=== PATIENT | female | born 1980 | race African-American/Black ===

== ENCOUNTER 2019-12-02 18:57 | Inpatient (IN) | payer MEDICAID, OTHER ==
[~2019-12-02] VITALS: Ht 170.2 cm; Wt 101.6 kg
[2019-12-02] MEDS ORDERED: SODIUM CHLORIDE 0.9% 1,000 ML IV ONE ×2 (19:09→19:33)
[2019-12-02 19:52] LABS: BASOPHILS % 0.5 % (0.0-2.0); EOSINOPHILS % 0.1 % (0.0-5.0); HEMATOCRIT. 31.1 % (36.0-48.0); HEMOGLOBIN. 10.4 g/dL (12.0-16.0); LYMPHOCYTES % 15.9 % (20.0-50.0); MEAN CORPUSCULAR HEMOGLOBIN 22.4 pg (28.0-32.0); MEAN CORPUSCULAR VOLUME 67.3 fL (81.0-99.0); MEAN PLATELET VOLUME 8.1 fl (7.4-10.4); MONOCYTES % 5.8 % (2.0-8.0); NEUTROPHILS % 77.7 % (40.0-76.0); PLATELET 444 x1000/uL (130-400); RED BLOOD CELL COUNT 4.62 mill/uL (4.2-5.4); RED CELL DISTRIBUTION WIDTH 19.4 % (11.6-14.6)
[2019-12-02 19:58] LABS: CHLORIDE 111 mEq/L (98-107)
[2019-12-02 20:02] LABS: ETHANOL BLOOD 22 mg/dL
[2019-12-02 20:30] LABS: PLATELET ESTIMATE INCREASED
[2019-12-02] MEDS ORDERED: MORPHINE SULFATE 4 MG/ML CPJ (NOT FOR IM USE) IV ONE (21:00)
[2019-12-02 21:03] LABS: CLARITY URINE CLEAR (CLEAR); COLOR URINE YELLOW (YELLOW); KETONES URINE TRACE (NEGATIVE); LEUKOCYTE ESTERASE URINE TRACE (NEGATIVE); NITRITE URINE NEGATIVE (NEGATIVE); OCCULT BLOOD URINE NEGATIVE (NEGATIVE); PH URINE 6.5 (4.5-8.0); PROTEIN URINE TRACE (NEGATIVE); SPECIFIC GRAVITY URINE 1.048 (1.005-1.030)
[2019-12-02 21:20] LABS: *AMPHETAMINES SCREEN URINE NEGATIVE (NEGATIVE); *BARBITURATES SCREEN URINE NEGATIVE (NEGATIVE); *BENZODIAZEPINES SCREEN URINE NEGATIVE (NEGATIVE); *COCAINE SCREEN URINE NEGATIVE (NEGATIVE)
[2019-12-02 21:21] LABS: OPIATES URINE SCREEN NEGATIVE (NEGATIVE); PHENCYCLIDINE URINE SCREEN NEGATIVE (NEGATIVE)
[2019-12-02 21:22] LABS: METHADONE URINE SCREEN NEGATIVE (NEGATIVE)
[2019-12-02 21:32] LABS: CANNABINOID URINE SCREEN PRESUMTIVE POSITIVE (NEGATIVE)
[2019-12-02] MEDS ORDERED: DOCUSATE SODIUM 100MG CAPSULE PO PRN (23:15)
[2019-12-02] MEDS ORDERED: GUAIFENESIN 200MG/10ML SUGAR FREE UDC PO PRN (23:15)
[2019-12-02] MEDS ORDERED: ACETAMINOPHEN 650MG/20.3ML UDC GT PRN ×2 (23:15)
[2019-12-02] MEDS ORDERED: ACETAMINOPHEN 650MG SUPP PR PRN ×2 (23:15)
[2019-12-02] MEDS ORDERED: IOHEXOL-350 100 ML BOTTLE ONE (23:18)
[2019-12-02] MEDS ORDERED: IOHEXOL-300 100 ML BOTTLE ONE (23:25)
[2019-12-03] MEDS: DEXT 5%/0.45% NACL 1000ML 1,000 ML IV SCH ×2 (00:02→16:40)
[2019-12-03 06:06] LABS: BASOPHILS % 0.3 % (0.0-2.0); EOSINOPHILS % 0.7 % (0.0-5.0); HEMATOCRIT. 29.2 % (36.0-48.0); HEMOGLOBIN. 9.6 g/dL (12.0-16.0); MEAN CORPUSCULAR HEMOGLOBIN 22.3 pg (28.0-32.0); MEAN CORPUSCULAR VOLUME 67.9 fL (81.0-99.0); MEAN PLATELET VOLUME 8.2 fl (7.4-10.4); PLATELET 391 x1000/uL (130-400); RED CELL DISTRIBUTION WIDTH 19.7 % (11.6-14.6)
[2019-12-03 06:13] LABS: CHLORIDE 111 mEq/L (98-107)
[2019-12-03 06:20] LABS: LDL CHOLESTEROL 61 mg/dL (5-100)
[2019-12-03 06:21] LABS: HDL CHOLESTEROL 36 mg/dL (40-59)
[2019-12-03 06:22] LABS: CREATINE KINASE 148 IU/L (26-192)
[2019-12-03 06:25] LABS: CREATINE KINASE MB FRACTION 1.1 ng/mL (0.5-3.6)
[2019-12-03] MEDS ORDERED: MORPHINE SULFATE 2 MG/ML CPJ (NOT FOR IM USE) IV NR (11:07)
[2019-12-03 14:46] LABS: CREATINE KINASE 139 IU/L (26-192)
[2019-12-03 14:47] LABS: CREATINE KINASE MB FRACTION < 1.0 ng/mL (0.5-3.6)
[2019-12-03 23:47] VITALS: BP 155/98
[2019-12-04] VITALS (10 sets, daily range): BP systolic 121–169; BP diastolic 68–113
[2019-12-04] MEDS: ACETAMINOPHEN 325MG TABLET PO PRN ×2 (00:48→10:49)
[2019-12-04] MEDS ORDERED: ONDANSETRON HCL 4MG/2ML INJ IV PRN ×2 (07:45→08:00)
[2019-12-04] MEDS ORDERED: LABETALOL 5MG/ML SYR 20 MG/4 ML SYRINGE IV PRN (07:45)
[2019-12-04] MEDS ORDERED: POTASSIUM CHLORIDE 20MEQ TABLET SR PO PRN (07:45)
[2019-12-04] MEDS ORDERED: LABETALOL HCL 100MG TABLET PO PRN (08:00)
[2019-12-04] MEDS ORDERED: FAMOTIDINE 20MG/2ML VIAL IV SCH (09:00)
[2019-12-04 10:39] LABS: BASOPHILS % 0.6 % (0.0-2.0); EOSINOPHILS % 1.6 % (0.0-5.0); HEMATOCRIT. 28.2 % (36.0-48.0); HEMOGLOBIN. 9.4 g/dL (12.0-16.0); LYMPHOCYTES % 26.6 % (20.0-50.0); MEAN CORPUSCULAR HEMOGLOBIN 22.6 pg (28.0-32.0); MEAN CORPUSCULAR VOLUME 67.5 fL (81.0-99.0); MEAN PLATELET VOLUME 7.9 fl (7.4-10.4); MONOCYTES % 6.9 % (2.0-8.0); NEUTROPHILS % 64.3 % (40.0-76.0); PLATELET 363 x1000/uL (130-400); RED BLOOD CELL COUNT 4.18 mill/uL (4.2-5.4); RED CELL DISTRIBUTION WIDTH 19.3 % (11.6-14.6)
[2019-12-04 10:52] LABS: CHLORIDE 108 mEq/L (98-107)
[2019-12-04] MEDS ORDERED: AMLO5TAB4 MT (12:39)
[2019-12-04 14:24] LABS: UCG SCREEN NEGATIVE
== END 2019-12-04 17:15 | disposition home or self-care (01) | DRG 48 ==
LOC: ER 18:57 → MICUSO 23:05 → 3WST 12-03 23:17 → ENRESERV 12-03 23:21 → CANRESERV 12-03 23:21
PROVIDERS: ADMIT Family Medicine; ATTEND Family Medicine
DX: G90.8 Other disorders of autonomic nervous system (principal); E87.6 Hypokalemia; E66.9 Obesity, unspecified; E86.0 Dehydration; R07.89 Other chest pain; F12.90 Cannabis use, unspecified, uncomplicated; I10 Essential (primary) hypertension; Z68.35 Body mass index [BMI] 35.0-35.9, adult; Z72.89 Other problems related to lifestyle; K21.9 Gastro-esophageal reflux disease without esophagitis
CPT/HCPCS: 36415; 70496; 71045; 74177; 80053; 80061; 80305; 80320; 81003; 81025; 82140; 82550; 82553; 82962; 83605; 83880; 84132; 84484; 85025; 85379; 93005; 93306; 93970; 96374; 99285; J2270; J3490; J7030; Q9967; G0480

== ENCOUNTER 2023-11-08 11:44 | Inpatient (IN) | payer SELFPAY ==
[~2023-11-08] VITALS: Ht 165.1 cm; Wt 87.1 kg
[2023-11-08] MEDS: SODIUM CHLORIDE 0.9% 1,000 ML IV ONE (12:00)
[2023-11-08 12:31] LABS: BASOPHILS % 0.5 % (0.0-2.0); EOSINOPHILS % 0.2 % (0.0-5.0); HEMATOCRIT. 26.1 % (36.0-48.0); HEMOGLOBIN. 7.9 g/dL (12.0-16.0); LYMPHOCYTES % 11.6 % (20.0-50.0); MEAN CORPUSCULAR HEMOGLOBIN 17.7 pg (28.0-32.0); MEAN CORPUSCULAR HGB CONC 30.1 g/dL (31.0-37.0); MEAN CORPUSCULAR VOLUME 58.7 fL (81.0-99.0); MEAN PLATELET VOLUME 8.5 fl (7.4-10.4); NEUTROPHILS % 81.7 % (40.0-76.0); PLATELET 544 x1000/uL (130-400); RED BLOOD CELL COUNT 4.44 mill/uL (4.2-5.4); RED CELL DISTRIBUTION WIDTH 21.6 % (11.6-14.6); WHITE BLOOD COUNT 8.1 x1000/uL (4.5-11.0)
[2023-11-08 12:39] LABS: CHLORIDE 112 mEq/L (98-107); POTASSIUM 4.1 mEq/L (3.5-5.1); SODIUM 143 mEq/L (136-145)
[2023-11-08 12:40] LABS: CARBON DIOXIDE 23 mEq/L (21-32)
[2023-11-08 12:41] LABS: CALCIUM 9.4 mg/dL (8.7-10.4)
[2023-11-08 12:45] LABS: CREATININE 0.6 mg/dL (0.6-1.0); GLUCOSE 76 mg/dL (70-105)
[2023-11-08 12:46] LABS: UREA NITROGEN BLOOD 10 mg/dL (9-23)
[2023-11-08 12:54] LABS: ADD RBC MORPHOLOGY YES; DIFFERENTIAL COMMENT 1
[2023-11-08] MEDS: ONDANSETRON HCL 4MG/2ML INJ IV STA (13:09)
[2023-11-08] MEDS: MORPHINE SULFATE 4 MG/ML INJ (FOR IV/IM USE) IV STA (13:10)
[2023-11-08 13:19] LABS: INR 1.1; PROTHROMBIN TIME 12.4 sec (9.6-11.0)
[2023-11-08 13:29] LABS: CLARITY URINE CLEAR (CLEAR); COLOR URINE YELLOW (YELLOW); GLUCOSE URINE NEGATIVE (NEGATIVE); KETONES URINE NEGATIVE (NEGATIVE); LEUKOCYTE ESTERASE URINE TRACE (NEGATIVE); NITRITE URINE NEGATIVE (NEGATIVE); OCCULT BLOOD URINE 3+ (NEGATIVE); PROTEIN URINE TRACE (NEGATIVE); SPECIFIC GRAVITY URINE 1.027 (1.005-1.030)
[2023-11-08 13:36] LABS: ANISOCYTOSIS 3+; MICROCYTOSIS 3+; PLATELET ESTIMATE INCREASED; TARGET CELLS 1+
[2023-11-08 13:37] LABS: HYPOCHROMASIA 1+
[2023-11-08 13:43] LABS: RBC URINE TNTC /hpf (0-2); SQUAMOUS EPITHELIAL CELL URINE 2+ /lpf (RARE/1+)
[2023-11-08 13:44] LABS: BACTERIA URINE NONE SEEN; YEAST URINE NONE SEEN
[2023-11-08 13:44] LABS: HCG SCREEN NEGATIVE
[2023-11-08] MEDS: DIATR MEGLU/DIATRIZOATE SOLN 30ML PO NR (15:20)
[2023-11-08] MEDS ORDERED: IPRATROPIUM/ALBUTEROL 0.5-3(2.5)MG/3ML NEB HHN PRN (17:45)
[2023-11-08] MEDS ORDERED: ACETAMINOPHEN 325MG TABLET PO PRN (17:45)
[2023-11-08] MEDS ORDERED: ONDANSETRON HCL 4MG/2ML INJ IV PRN (17:45)
[2023-11-08] MEDS: PANTOPRAZOLE SODIUM 40 MG/VIAL IV SCH (21:23)
[2023-11-08] MEDS ORDERED: IOHEXOL-300 100 ML BOTTLE ONE (23:25)
[2023-11-09] VITALS (8 sets, daily range): BP systolic 132–189; BP diastolic 75–123; PULSE 49–81; RESP 10–19; TEMP 98–98.3
[2023-11-09] MEDS: ACETAMINOPHEN 325MG TABLET PO PRN (03:04)
[2023-11-09] MEDS: CLONIDINE 0.1MG TABLET PO PRN (03:05)
[2023-11-09 05:42] LABS: *AMPHETAMINES SCREEN URINE NEGATIVE (NEGATIVE); *BARBITURATES SCREEN URINE NEGATIVE (NEGATIVE); *BENZODIAZEPINES SCREEN URINE NEGATIVE (NEGATIVE); *COCAINE SCREEN URINE NEGATIVE (NEGATIVE); METHADONE URINE SCREEN NEGATIVE (NEGATIVE); OPIATES URINE SCREEN PRESUMPTIVE POSITIVE (NEGATIVE)
[2023-11-09 05:43] LABS: CANNABINOID URINE SCREEN PRESUMPTIVE POSITIVE (NEGATIVE); ECSTASY MDMA SCREEN URINE NEGATIVE (NEGATIVE); PHENCYCLIDINE URINE SCREEN NEGATIVE (NEGATIVE)
[2023-11-09 06:50] LABS: FERRITIN 5 ng/mL (10-291); FOLIC ACID (FOLATE) SERUM 16.41 ng/mL (>5.38)
[2023-11-09 06:51] LABS: VITAMIN B12 SERUM 605 pg/mL (211-911)
[2023-11-09 06:55] LABS: CALCIUM 8.3 mg/dL (8.7-10.4); CARBON DIOXIDE 23 mEq/L (21-32); CHLORIDE 110 mEq/L (98-107); POTASSIUM 3.4 mEq/L (3.5-5.1); SODIUM 139 mEq/L (136-145)
[2023-11-09 06:57] LABS: CREATININE 0.5 mg/dL (0.6-1.0)
[2023-11-09 06:58] LABS: ALANINE AMINOTRANSFERASE 15 IU/L (10-49); ASPARTATE AMINOTRANSFERASE 17 IU/L (<34)
[2023-11-09 06:59] LABS: ALBUMIN 4.2 g/dL (3.2-4.8); GLUCOSE 73 mg/dL (70-105); IRON 78 ug/dL (50-170)
[2023-11-09 07:00] LABS: TOTAL IRON BINDING CAPACITY 403 ug/dl (250-425)
[2023-11-09 07:01] LABS: BILIRUBIN DIRECT 0.6 mg/dL (<=3.0); UREA NITROGEN BLOOD 6 mg/dL (9-23)
[2023-11-09 07:02] LABS: BILIRUBIN TOTAL 1.8 mg/dL (0.1-1.0); PROTEIN TOTAL 6.9 g/dL (6.0-8.3)
[2023-11-09 07:10] LABS: BASOPHILS % 0.5 % (0.0-2.0); HEMATOCRIT. 24.1 % (36.0-48.0); HEMOGLOBIN. 7.2 g/dL (12.0-16.0); LYMPHOCYTES % 19.4 % (20.0-50.0); MEAN CORPUSCULAR HEMOGLOBIN 17.8 pg (28.0-32.0); MEAN CORPUSCULAR VOLUME 59.2 fL (81.0-99.0); MEAN PLATELET VOLUME 8.5 fl (7.4-10.4); MONOCYTES % 8.5 % (2.0-8.0); NEUTROPHILS % 70.6 % (40.0-76.0); PLATELET 470 x1000/uL (130-400); RED BLOOD CELL COUNT 4.08 mill/uL (4.2-5.4); WHITE BLOOD COUNT 6.3 x1000/uL (4.5-11.0)
[2023-11-09 07:40] LABS: DIFFERENTIAL COMMENT 1
[2023-11-09] MEDS ORDERED: NALOXONE HCL 0.4MG/ML VIAL IV PRN (13:00)
[2023-11-09] MEDS: AMLODIPINE 5MG TABLET PO SCH (14:15)
[2023-11-09] MEDS: MORPHINE SULFATE 2 MG/ML CPJ (NOT FOR IM USE) IV PRN (14:24)
[2023-11-09] MEDS: POTASSIUM CHLORIDE 20MEQ TABLET SR PO SCH (17:03)
[2023-11-09] MEDS: DEXT 5%/0.9% NACL 1,000 ML IV SCH (22:05)
[2023-11-10] VITALS (19 sets, daily range): BP systolic 129–157; BP diastolic 71–102; PULSE 53–88; RESP 12–33; TEMP 97.7–98.6; O2SAT 100
[2023-11-10 02:26] LABS: BASOPHILS % 0.6 % (0.0-2.0); EOSINOPHILS % 1.4 % (0.0-5.0); HEMATOCRIT. 23.9 % (36.0-48.0); LYMPHOCYTES % 21.7 % (20.0-50.0); MEAN CORPUSCULAR HEMOGLOBIN 18.2 pg (28.0-32.0); MEAN CORPUSCULAR HGB CONC 29.3 g/dL (31.0-37.0); MEAN CORPUSCULAR VOLUME 62.1 fL (81.0-99.0); MEAN PLATELET VOLUME 7.4 fl (7.4-10.4); MONOCYTES % 7.9 % (2.0-8.0); NEUTROPHILS % 68.4 % (40.0-76.0); PLATELET 461 x1000/uL (130-400); RED BLOOD CELL COUNT 3.85 mill/uL (4.2-5.4); RED CELL DISTRIBUTION WIDTH 20.6 % (11.6-14.6); WHITE BLOOD COUNT 6.9 x1000/uL (4.5-11.0)
[2023-11-10 02:29] LABS: DIFFERENTIAL COMMENT 1
[2023-11-10 02:36] LABS: CHLORIDE 109 mEq/L (98-107); POTASSIUM 3.8 mEq/L (3.5-5.1); SODIUM 137 mEq/L (136-145)
[2023-11-10 02:37] LABS: CALCIUM 8.6 mg/dL (8.7-10.4); CARBON DIOXIDE 21 mEq/L (21-32)
[2023-11-10 02:38] LABS: PROTHROMBIN TIME 11.2 sec (9.6-11.0)
[2023-11-10 02:42] LABS: CREATININE 0.6 mg/dL (0.6-1.0); GLUCOSE 122 mg/dL (70-105)
[2023-11-10 03:05] LABS: UREA NITROGEN BLOOD < 5 mg/dL (9-23)
[2023-11-10] MEDS: MORPHINE SULFATE 2 MG/ML CPJ (NOT FOR IM USE) IV NR (07:28)
[2023-11-10 10:35] LABS: TROPONIN I HIGH SENSITIVITY < 4 ng/L (3.0-34)
[2023-11-10] MEDS ORDERED: PROPOFOL 200MG/20ML VIAL IV ONE ×2 (11:57→12:22)
[2023-11-10] MEDS ORDERED: ONDANSETRON HCL 4MG/2ML INJ ONE (11:57)
[2023-11-10] MEDS ORDERED: DEXAMETHASONE 4MG/ML 1ML VIAL ONE (11:57)
[2023-11-10] MEDS ORDERED: MIDAZOLAM HCL 2 MG/2 ML VIAL ONE (12:10)
[2023-11-10] MEDS ORDERED: LIDOCAINE HCL 1% 10 MG/ML 10ML VIAL ONE (12:22)
[2023-11-10 16:22] LABS: HEMATOCRIT 32.3 % (36.0-48.0)
[2023-11-10] MEDS ORDERED: AMLO5TAB88 PO (17:32)
[2023-11-10] MEDS ORDERED: PANT40TA51 MT (17:32)
== END 2023-11-10 23:20 | disposition home or self-care (01) | DRG 241 ==
LOC: ER 11:44 → EDBEDREQTM 13:21 → EDBEDREQ 13:21 → 5WST 17:46 → 3WST 11-09 02:12
PROVIDERS: ADMIT Family Medicine Adult Medicine; ATTEND Family Medicine Adult Medicine
PROC: 0DB78ZX Excision of Stomach, Pylorus, Via Natural or Artificial Opening Endoscopic, Diagnostic (ICD-10-PCS; principal; 2023-11-10)
PROC: 30233N1 Transfusion of Nonautologous Red Blood Cells into Peripheral Vein, Percutaneous Approach (ICD-10-PCS; 2023-11-10)
DX: K29.70 Gastritis, unspecified, without bleeding (principal); R16.0 Hepatomegaly, not elsewhere classified; K76.0 Fatty (change of) liver, not elsewhere classified; D25.9 Leiomyoma of uterus, unspecified; D50.9 Iron deficiency anemia, unspecified; I10 Essential (primary) hypertension; F17.210 Nicotine dependence, cigarettes, uncomplicated; K52.9 Noninfective gastroenteritis and colitis, unspecified; K76.9 Liver disease, unspecified; K43.9 Ventral hernia without obstruction or gangrene; K44.9 Diaphragmatic hernia without obstruction or gangrene; Z79.899 Other long term (current) drug therapy
CPT/HCPCS: 36415; 74177; 76700; 80048; 80076; 80305; 81003; 82607; 82728; 82746; 83036; 83540; 83550; 84484; 84703; 85014; 85018; 85025; 86850; 86900; 86920; 88305; 93005; 99285; C9113; J1100; J2250; J2270; J2405; J2704; J3490; J7030; J7042; P9016; Q9963; Q9967